=== PATIENT | male | born 1975 | race Two or more races ===

== ENCOUNTER 2023-11-24 14:07 | Emergency (ER) | payer OTHER, SELFPAY ==
--- NOTE | ~2023-11-24 | XR_ITS ---
EXAMINATION: XR LUMBOSACRAL SPINE CLINICAL INFORMATION: Injury. Low back pain. COMPARISON: None available. TECHNIQUE: Three views of the lumbosacral spine. FINDINGS: Vertebrae have normal height and alignment. No fracture or bone destruction. Lumbar disc heights are normal. There are small vertebral endplate spurs involving anterior superior endplate of L5 T12. Facet joints are normal. No spondylolysis or spondylolisthesis. Sacroiliac joints are normal. XR/XR lumbar spine 2-3V IMPRESSION: 1. No acute abnormality. 2. Small vertebral endplate spurs of the L5 vertebrae. Lumbar disc heights and facet joints are normal.
--- NOTE | 2023-11-24 14:12 | ED.GENADULT ---
HPI - General Adult General Chief complaint: Back Pain/Injury Stated complaint: Back pain Time Seen by Provider: 11/24/23 14:25 Source: patient Mode of arrival: ambulatory Limitations: no limitations History of Present Illness HPI narrative: Patient is a 48-year-old male with history of DM presenting to the emergency department with complaint of mid to right lower back pain since a slip and fall on Tuesday. He states that he was going down the stairs when he missed a step. He reports that he was holding his son so he braced himself and landed on his back. He denies head strike or loss of consciousness. He has not anticoagulated. He called PCP who referred him to the emergency department to ensure there was no renal injury. Patient denies any hematuria. Reports glucose levels have been elevated since Mother's Day, wants to make sure he is not in DKA. Denies saddle anesthesia or bowel or bladder incontinence. Denies fevers. MD complaint: back pain Onset (ago): day(s) Location: back Severity: severe Quality: aching Pain Consistency: constant Relieving factors: rest Exacerbating factors: movement Associated symptoms: denies other symptoms Treatments prior to arrival: none Related Data Previous Rx's ?Medication ?Instructions ?Recorded cyclobenzaprine 10 mg tablet 10 mg PO TID PRN muscle spasm #10 11/24/23 tabs lidocaine 5 % topical patch 1 patch topical DAILY #15 ea 11/24/23 Allergies Allergy/AdvReac Type Severity Reaction Status Date / Time No Known Allergies Allergy Verified 11/24/23 14:16 Review of Systems Review of Systems: As per HPI. Yes all other systems are reviewed and are negative Constitutional: Constitutional: Reports as per HPI [facility] Social History Social History Advance Directives: No Advance Directives Information Provided: No Physical Exam ED Vital Signs: Vital Signs - 24 hr 11/24/23 14:13 Temperature 98.9 F Pulse Rate 95 Respiratory Rate 16 Blood Pressure 134/74 Pulse Oximetry 98 Oxygen Delivery Method Room Air BMI result Body Mass Index 38.7 Vital signs have been reviewed and appear to be correct. Blood pressure normal. Heart rate normal. Respiratory rate normal. Temperature normal. Oxygen saturation normal. Const General: cooperative, healthy appearing and no acute distress Orientation/consciousness: oriented to person, oriented to place, oriented to time and patient oriented x3 Limitations: no limitations HENMT Head: Yes normocephalic and Yes atraumatic Ears: external ears normal General nose exam: Normal external nose present Face and sinus: Yes face symmetric Mouth: oropharynx normal and moist mucous membranes Throat: Yes uvula midline Eyes Pupils: Equal, round and reactive pupils present Neck Neck: Yes normal visual inspection, Yes no meningeal signs and Yes supple Resp Effort & Inspection: normal respiratory effort and able to speak in complete sentences Auscultation: clear to auscultation bilaterally Cardio Rate: regular rate Rhythm: regular rhythm Heart sounds: S1 normal heart sound present and S2 normal heart sound present GI Palpation (GI): Soft to palpation and nontender Auscultation: normoactive bowel sounds General: Yes no CVA tenderness Back/Spine/Pelvis Back: no CVA tenderness Cervical Spine: normal cervical lordosis, cervical ROM normal, No Cervical spine tenderness and No step off deformity Thoracic/Lumbar Spine: thoracic and lumbar spine normal to inspection, thoraco-lumbar ROM normal, straight leg raise negative bilaterally, pain with thoraco-lumbar ROM, paraspinal muscle tenderness on the right in the upper lumbar, No thoracic spinal tenderness and lumbar spinal tenderness at L1 and at L2 Skin General skin exam: elasticity normal and turgor normal Neuro General: oriented to person, oriented to place, oriented to time, patient oriented x3, gait normal, tone normal, moves all extremities, Normal light touch and pain sensation, no meningeal signs, no focal motor deficits, CN's II-XI intact bilaterally and deep tendon reflexes 2+ bilaterally Cranial nerves: Yes Equal, round and reactive pupils present Cognition (Neuro): normal cognition Motor exam (neuro): 5/5 motor strength present throughout, Pronator motor function not present, no tremor noted, no asterixis, Motor fasciculations not present, Normal motor muscle tone present throughout and Motor abnormalities not present Sensory Exam: Normal double simultaneous stimulation for sensation Extrem General: Yes full ROM, Yes no pedal edema and Yes no calf tenderness Psych Mental Status: mental status grossly normal Affect: normal affect Thought process: Normal thought process present Course Course Course Narrative: RME performed by Nicole Grant PA-C. Patient is a 48 year old assigned male at presenting to the emergency department with back pain. Patient states that last week he fell while holding his son but his PCP is concerned his kidneys are having issues. Patient has a history of DM. Labs, imaging, and swabs ordered. Patient placed back in the waiting room pending room availability and results. Medical Decision Making Medical Decision Making [facility] Narrative: Patient is a 48-year-old male with history of DM presenting to the emergency department with complaint of mid to right lower back pain since a slip and fall on Tuesday. On exam patient is awake, A+Ox3, VS WNL, afebrile, normal neurological exam without focal deficits, physical exam findings as above. Given reported symptoms and physical exam findings, initial differential includes vertebral fracture or subluxation, lumbar strain, lumbar radiculopathy, degenerative disc disease, disc herniation, spinal stenosis, spondylosis. Do not suspect malignancy/mass, SEA, cauda equina/cord compression. Labs notable for no evidence of DKA. X-ray notable for no acute abnormalities. My interpretation is in agreement with the radiologist's interpretation. No evidence of infection on urinalysis. Will treat patient for lumbar strain with cyclobenzaprine and topical lidocaine patches, advised him to alternate Tylenol and ibuprofen. Instructed patient follow-up with primary care provider. Return precautions discussed at bedside. Patient verbalized understanding of and agreement plan. Differential Diagnosis Differential Diagnoses: The differential diagnosis associated with the presentation includes As per [facility]. Admission/Observation Consideration of admission/observation: Escalation of care including admission/observation considered Patient would have been admitted to the hospital had their work up had any findings where hospital admission was appropriate and their clinical presentation warranted hospital admission. Lab Data [facility] Lab Attestation statement: I reviewed the patient's lab results. As per [facility]. 11/24/23 14:25 11/24/23 14:24 Labs: Lab Results 11/24/23 11/24/23 11/24/23 Range/Units 14:20 14:24 14:25 WBC 11.8 H (4.8-10.8) X10*3/uL RBC 6.17 H (4.60-5.80) X10*6/uL Hgb 14.9 (14.0-18.0) g/dl Hct 45.0 (42.0-52.0) % MCV 72.9 L (80.0-98.0) fL MCH 24.1 L (27.0-33.0) pg MCHC 33.1 (31.0-36.0) g/dl RDW 14.6 (11.0-16.0) % Plt Count 289 (160-400) X10*3/uL MPV 11.4 (9.4-12.4) fL Immature Gran % (Auto) 0.3 (0.0-0.4) % Neut % (Auto) 68.8 (45-73) % Lymph % (Auto) 22.9 (20-40) % Davison % (Auto) 6.2 (2-11) % Eos % (Auto) 1.7 (0-4) % Baso % (Auto) 0.1 (0-2) % Lymph # (Auto) 2.7 (1.2-4.9) X10*3/uL Davison # (Auto) 0.7 (0.1-1.2) X10*3/uL Eos # (Auto) 0.2 (0.0-0.4) X10*3/uL Baso # (Auto) 0.0 (0.0-0.2) X10*3/uL Abs Immat Gran (auto) 0.04 H (0.00-0.03) X10*3/uL Absolute Neuts (auto) 8.1 (2.0-8.3) x10*3/uL Absolute Nucleated RBC 0.000 (0.0-0.012) X10*3/uL Nucleated RBC % (auto) 0.0 (0.0-0.2) /100WBC Sodium 135 (135-145) mmol/L Potassium 4.3 (3.3-5.1) mmol/L Chloride 100 (96-108) mmol/L Carbon Dioxide 23 (22-29) mmol/L Anion Gap 16 (12-20) BUN 15 (9-16) mg/dL Creatinine 1.54 H (0.5-1.4) mg/dL Estim Creat Clear Calc 79.2 Estimated GFR 48 POC Glucose 305 H (60-115) mg/dL Random Glucose 347 H (60-115) mg/dL Calcium 9.5 (8.4-10.2) mg/dL Magnesium 1.9 (1.6-2.6) mg/dL Total Bilirubin 0.8 (0.0-1.0) mg/dL AST 14 (5-37) U/L ALT 27 (0-40) U/L Alkaline Phosphatase 93 (39-117) U/L Total Protein 7.8 (6.5-8.0) g/dL Albumin 4.3 (3.5-5.0) g/dL Beta-Hydroxybutyrate 0.21 (0.02-0.27) mmol/L Urine Color Urine Appearance Urine pH (5.0-9.0) Ur Specific Nogal (1.005-1.025) Urine Protein (Neg-Trace) mg/dL Urine Glucose (UA) (Negative) mg/dL Urine Ketones (Negative) mg/dL Urine Blood (Negative) Urine Nitrite (Negative) Ur Leukocyte Esterase (Negative) Urine RBC (0-2) /HPF Urine WBC (0-5) /HPF Ur Squamous Epith Cells (0-2) /HPF Urine Bacteria (None Seen) Hyaline Casts (0-2) /LPF 11/24/23 Range/Units 15:55 WBC (4.8-10.8) X10*3/uL RBC (4.60-5.80) X10*6/uL Hgb (14.0-18.0) g/dl Hct (42.0-52.0) % MCV (80.0-98.0) fL MCH (27.0-33.0) pg MCHC (31.0-36.0) g/dl RDW (11.0-16.0) % Plt Count (160-400) X10*3/uL MPV (9.4-12.4) fL Immature Gran % (Auto) (0.0-0.4) % Neut % (Auto) (45-73) % Lymph % (Auto) (20-40) % Davison % (Auto) (2-11) % Eos % (Auto) (0-4) % Baso % (Auto) (0-2) % Lymph # (Auto) (1.2-4.9) X10*3/uL Davison # (Auto) (0.1-1.2) X10*3/uL Eos # (Auto) (0.0-0.4) X10*3/uL Baso # (Auto) (0.0-0.2) X10*3/uL Abs Immat Gran (auto) (0.00-0.03) X10*3/uL Absolute Neuts (auto) (2.0-8.3) x10*3/uL Absolute Nucleated RBC (0.0-0.012) X10*3/uL Nucleated RBC % (auto) (0.0-0.2) /100WBC Sodium (135-145) mmol/L Potassium (3.3-5.1) mmol/L Chloride (96-108) mmol/L Carbon Dioxide (22-29) mmol/L Anion Gap (12-20) BUN (9-16) mg/dL Creatinine (0.5-1.4) mg/dL Estim Creat Clear Calc Estimated GFR POC Glucose (60-115) mg/dL Random Glucose (60-115) mg/dL Calcium (8.4-10.2) mg/dL Magnesium (1.6-2.6) mg/dL Total Bilirubin (0.0-1.0) mg/dL AST (5-37) U/L ALT (0-40) U/L Alkaline Phosphatase (39-117) U/L Total Protein (6.5-8.0) g/dL Albumin (3.5-5.0) g/dL Beta-Hydroxybutyrate (0.02-0.27) mmol/L Urine Color Yellow Urine Appearance Clear Urine pH 5.5 (5.0-9.0) Ur Specific Nogal >= 1.030 H (1.005-1.025) Urine Protein Negative (Neg-Trace) mg/dL Urine Glucose (UA) >=1000 H (Negative) mg/dL Urine Ketones Trace (Negative) mg/dL Urine Blood Negative (Negative) Urine Nitrite Negative (Negative) Ur Leukocyte Esterase Negative (Negative) Urine RBC 0-2 (0-2) /HPF Urine WBC 0-5 (0-5) /HPF Ur Squamous Epith Cells 0-2 (0-2) /HPF Urine Bacteria None Seen (None Seen) Hyaline Casts 0-2 (0-2) /LPF Independent Interpretation I performed an independent interpretation of an: Plain X-Ray Interpretation: No acute abnormalities on lumbar x-ray Radiology Impression Discussion of test interpretation with radiology: I have reviewed the radiologist's reading. Radiologist Impression: XR/XR lumbar spine 2-3V IMPRESSION: 1. No acute abnormality. 2. Small vertebral endplate spurs of the L5 vertebrae. Lumbar disc heights and facet joints are normal. External Record Review External record reviewed: Inpatient record, Office record and Outpatient record Prescription Management I considered prescription management with: Pain Medication and Other Discharge Plan Discharge Clinical Impression: Strain of lumbar region Patient Disposition: Home, Self-Care Instructions: Low Back Strain (ED), Lower Back Exercises (ED) Additional Instructions: You were evaluated in the emergency department today for back pain. Your evaluation did not show signs of medical conditions requiring emergent intervention at this time. We recommended that you use ibuprofen or Tylenol per package directions every 6 hours as needed for pain. If necessary, you can alternate these medications so that you take one medication every 3 hours. For instance, at noon take ibuprofen, then at 3:00 p.m. take Tylenol, then at 6:00 p.m. take ibuprofen. You have been prescribed a muscle relaxer which you may take every 8 hours as needed for spasms. You have been prescribed 5% topical lidocaine patches which you can wear for up to 12 hours in a 24 hour period. Do not apply heat directly over the patches. Please schedule an appointment for follow-up with your primary care physician this week for further evaluation of your symptoms. Return to the emergency department if you experience worsening back pain, difficulty walking, fevers, numbness, tingling, incontinence, groin numbness or tingling, or any other concerning symptoms. Prescriptions: New cyclobenzaprine 10 mg tablet 10 mg PO TID PRN (Reason: muscle spasm) Qty: 10 0RF lidocaine 5 % adhesive patch,medicated 1 patch topical DAILY Qty: 15 0RF Rx Instructions: leave on most painful area for up to 12 hrs Stand Alone Forms: Work/School Release Print Language: Yi
[2023-11-24 14:13] VITALS: BP 134/74; PULSE 95; RESP 16; TEMP 37.2; O2SAT 98; BMI 38.7
[2023-11-24 14:24] LABS: Glucose, Whole Blood 305 mg/dL (60-115)
[2023-11-24 14:30] LABS: MANUAL DIFF FLAG NO
[2023-11-24 14:31] LABS: Basophils Percent Auto 0.1 % (0-2); Eosinophils Absolute Auto 0.2 X10*3/uL (0.0-0.4); Eosinophils Percent Auto 1.7 % (0-4); Hemoglobin 14.9 g/dl (14.0-18.0); Imm Gran Abs Auto 0.04 X10*3/uL (0.00-0.03); Imm Gran Pct Auto 0.3 % (0.0-0.4); Lymphocytes Absolute Auto 2.7 X10*3/uL (1.2-4.9); Lymphocytes Percent Auto 22.9 % (20-40); Mean Corpuscular HGB Conc 33.1 g/dl (31.0-36.0); Mean Corpuscular Hemoglobin 24.1 pg (27.0-33.0); Mean Corpuscular Volume 72.9 fL (80.0-98.0); Mean Platelet Volume 11.4 fL (9.4-12.4); Monocytes Absolute Auto 0.7 X10*3/uL (0.1-1.2); Monocytes Percent Auto 6.2 % (2-11); Neutrophils Absolute Auto 8.1 x10*3/uL (2.0-8.3); Neutrophils Percent Auto 68.8 % (45-73); Platelet Count 289 X10*3/uL (160-400); Red Blood Count 6.17 X10*6/uL (4.60-5.80); Red Cell Distribution Width 14.6 % (11.0-16.0); White Blood Count 11.8 X10*3/uL (4.8-10.8)
[2023-11-24 14:51] LABS: Alanine Aminotransferase 27 U/L (0-40); Albumin Level 4.3 g/dL (3.5-5.0); Alkaline Phosphatase 93 U/L (39-117); Anion Gap 16 (12-20); Aspartate Amino Transferase 14 U/L (5-37); Beta-Hydroxybutyrate 0.21 mmol/L (0.02-0.27); Bilirubin Total 0.8 mg/dL (0.0-1.0); Blood Urea Nitrogen 15 mg/dL (9-16); Calcium 9.5 mg/dL (8.4-10.2); Carbon Dioxide 23 mmol/L (22-29); Chloride 100 mmol/L (96-108); Creatinine Clr Calc Pharmacy 79.2; Estimated Glomerular Filt Rate 48; Glucose Random 347 mg/dL (60-115); Magnesium 1.9 mg/dL (1.6-2.6); Potassium 4.3 mmol/L (3.3-5.1); Sodium 135 mmol/L (135-145); Total Protein 7.8 g/dL (6.5-8.0)
[2023-11-24 16:04] LABS: Appearance Urine Clear; Color Urine Yellow; Glucose Urine UA >=1000 mg/dL (Negative); Leukocyte Esterase Urine Negative (Negative); Nitrite Urine Negative (Negative); PH 5.5 (5.0-9.0); Specific Gravity - Urine >= 1.030 (1.005-1.025); UMIC TRIGGER UACC YES; Urine Blood Negative (Negative); Urine Ketones Trace mg/dL (Negative); Urine Protein Negative (Neg-Trace)
[2023-11-24 16:09] LABS: Bacteria Urine None Seen (None Seen); Hyaline Casts Urine 0-2 /LPF (0-2); RBC Urine 0-2 /HPF (0-2); Squamous Epithelial Cell Urine 0-2 /HPF (0-2); WBC Urine 0-5 /HPF (0-5)
[2023-11-24 16:39] VITALS: BP 128/82; PULSE 101; RESP 18; TEMP 36.8; O2SAT 100
== END 2023-11-24 16:40 | disposition home or self-care (01) ==
PROVIDERS: Physician Assistant Medical; Emergency Provider Emergency Medicine; PCP Internal Medicine
DX: S39.012A Strain of muscle, fascia and tendon of lower back, initial encounter (principal); E11.9 Type 2 diabetes mellitus without complications; W10.9XXA Fall (on) (from) unspecified stairs and steps, initial encounter; Y93.9 Activity, unspecified; Y92.9 Unspecified place or not applicable; Y99.9 Unspecified external cause status
CPT/HCPCS: 36415; 72100; 80053; 81001; 81003; 82010; 82947; 83735; 85025; 99282; 99283

== ENCOUNTER 2024-10-27 10:25 | Emergency (ER) | payer OTHER, SELFPAY ==
--- NOTE | ~2024-10-27 | XR_ITS ---
CLINICAL HISTORY: back pain 3 views lumbar spine Comparison: None Findings: Normal alignment. No acute fractures or dislocation. No significant degenerative change. IMPRESSION: No acute findings. This document has been electronically signed by: Mina Contreras MD on 10/27/2024 13:27:18
[2024-10-27 10:31] VITALS: BP 124/85; PULSE 69; RESP 18; TEMP 36.3; O2SAT 96; BMI 39.9
--- NOTE | 2024-10-27 11:15 | ED_ITS ---
HPI - Back Pain/Injury General Chief Complaint: Extremity Injury, Lower Stated Complaint: Leg pain Time Seen by Provider: 10/27/24 10:59 Source: patient Mode of arrival: ambulatory Limitations: no limitations History of Present Illness HPI Narrative: This is a 49 years old male who drove himself to the emergency department walk to the department complaining of lower back pain and again in 2 the right leg. He was seen by his PCP on Tuesday for the same problem and was started on Motrin and with no improvement. He has no deficit in strength he has no fever he has no saddle anesthesia. MD elicited complaint: back pain Pertinent past history: prior back pain Onset (ago): day(s) (3) Timing: constant Severity: moderate Similar Symptoms Previously: Yes Quality: sharp Location: lumbar spine Radiation: other (Right leg) Exacerbating factors: none Relieving factors: none Associated symptoms: denies other symptoms Related Data Previous Rx's ?Medication ?Instructions ?Recorded cyclobenzaprine 10 mg tablet 10 mg PO TID PRN muscle spasm #10 11/24/23 tabs lidocaine 5 % topical patch 1 patch topical DAILY #15 ea 11/24/23 oxycodone 5 mg tablet 5 mg PO Q6H PRN pain #15 tabs 10/27/24 prednisone 20 mg tablet 40 mg (2 x 20 mg) PO DAILY 10/27/24 sciatica 5 days #10 tabs Allergies Allergy/AdvReac Type Severity Reaction Status Date / Time No Known Allergies Allergy Verified 10/27/24 10:32 Review of Systems Cardiovascular: Cardiovascular: Reports no additional cardiovascular complaints Musculoskeletal: Musculoskeletal: Reports back pain [facility] Past Medical History [facility] Narrative: Lower back pain for (seen here November 2023 for back pain) Social History Social History Smoked in Last 30 Days: No Use of substances other than those prescribed or required for medical reasons: No Advance Directives: No Advance Directives Information Provided: Yes Physical Exam Vital Signs: Vital Signs: Last Vital Signs Temp 98.0 F 10/27/24 12:26 Pulse 62 10/27/24 12:26 Resp 18 10/27/24 12:26 BP 130/68 10/27/24 12:26 Pulse Ox 100 10/27/24 12:26 O2 Del Method Room Air 10/27/24 12:26 BMI result Body Mass Index 39.9 Looks well he has no in distress his vital signs are stable he is afebrile Const: General: cooperative Orientation/consciousness: patient oriented x3 HEENT: Head: Yes normal to inspection Ears: hearing grossly normal bilaterally General nose exam: Normal external nose present Face and sinus: Yes normal facial exam Teeth and gingiva: dentition normal Throat: Yes posterior oropharynx normal Neck: Neck: Yes normal visual inspection Chest: Chest palpation & inspection: normal inspection of the chest Resp: Effort & Inspection: normal respiratory effort Cardio: Jugular venous distension: no JVD Rhythm: regular rhythm GI: Inspection: Yes normal to inspection Palpation (GI): Soft to palpation, not firm, nontender and no guarding Percussion: Yes normal to percussion Skin: General skin exam: no rashes or lesions noted Lesions: no lesions Rashes: no rashes Neuro: Other: On examination he has no deficits on strength he sensation is normal he is able to feel my hand normally is reflexes are present. The is gait is antalgic but is able to ambulate without any problem. General: patient oriented x3 Cognition (Neuro): normal cognition Motor exam (neuro): 5/5 motor strength present throughout Course Reevaluation(s) Reevaluation #1: On re-examination she is feeling better, he is neurologically intact, able to ambulate I think he can be discharged home follow-up with the his primary care physician and Spine service Time: 12:17 Medications Administered Discontinued Medications Generic Name Dose Route Start Last Admin Trade Name Freq PRN Reason Stop Dose Admin Ketorolac Tromethamine 60 mg 10/27/24 11:15 10/27/24 11:28 Ketorolac Tromethamine 60 Mg/2 Ml Vial IM 10/27/24 11:16 60 mg ONCE ONE Administration Prednisone 60 mg 10/27/24 11:14 10/27/24 11:28 Prednisone 20 Mg Tablet PO 10/27/24 11:15 60 mg ONCE ONE Administration Medical Decision Making Medical Decision Making [facility] Narrative: Patient is here with lower back pain radiating to the right leg clinical picture consistent with right sciatic. We will provide analgesia I do not think we need to do an emergent MRI today no red flags. He can be discharged home he can follow-up with Dr Grant Differential Diagnosis Differential Diagnoses: The differential diagnosis associated with the presentation includes Muscular strain/sciatic pain Admission/Observation Consideration of admission/observation: Escalation of care including admission /observation considered Independent Interpretation I performed an independent interpretation of an: Plain X-Ray Interpretation: no fx Radiology Impression Discussion of test interpretation with radiology: I have reviewed the radiologist's reading. Radiologist Impression: CLINICAL HISTORY: back pain 3 views lumbar spine Comparison: None Findings: Normal alignment. No acute fractures or dislocation. No significant degenerative change. IMPRESSION: No acute findings. This document has been electronically signed by: Mina Contreras MD on 10/27/2024 13:27:18 Dictated By: Mina Contreras MD Signed By: <Electronically signed by Mina Contreras MD in OV> 10/27/24 1328 DD/ 1327 TD/TT: 10/27/24 1327 Transcri Tests considered The following testing was considered but not selected: Emergent MRI spine not done because neurologically intact Prescription Management I considered prescription management with: Pain Medication Discharge Plan Discharge Clinical Impression: Sciatica Qualifiers: Laterality: right Qualified Code(s): M54.31 - Sciatica, right side Patient Disposition: Home, Self-Care Instructions: Sciatica (ED) Additional Instructions: follow up with Dr Grant (payer specialist) return if worse,weakness legs,numbness in the groin/genitalia,any concern Prescriptions: New prednisone 20 mg tablet 40 mg PO DAILY 5 Days Qty: 10 0RF oxycodone 5 mg tablet 5 mg PO Q6H PRN (Reason: pain) Qty: 15 0RF Rx Instructions: partial filing upon pt request; Partial Fill upon patient request. No Action cyclobenzaprine 10 mg tablet 10 mg PO TID PRN (Reason: muscle spasm) Qty: 10 0RF lidocaine 5 % adhesive patch,medicated 1 patch topical DAILY Qty: 15 0RF Rx Instructions: leave on most painful area for up to 12 hrs Referrals: Edwin Nayak MD, PhD [Physician] - 10/30/24 Stand Alone Forms: Work/School Release Interventions: ED Discharge Assessment Last Done: 10/27/24 12:26 Discharge Date/Time: 10/27/24 12:27 Print Language: Greek
--- OUTSIDE RECORDS SUMMARY | 2024-10-27 11:16 | XMS_ITS | Encounter Summary ---
Author Organization [facility] Address [address] [place] [address] Care Team Providers Care Tile Molder Hand Name Role Phone Brando Gibbs MD Primary Care Provider [phone] Reason for Visit * Reason Onset Date Comments Back Pain 10/25/2024 Numbness 10/25/2024 Encounter Details Date Type Department Care Team (Late st Contact Info) Description 10/25/2024 Telephone Adult Medicine [address] [phone] Brando Gibbs MD [address] [place] [phone] Back Pain; Numbness Social History Tobacco Use Types Packs/Day Years Used Date Smoking Tobacco: Never Smokeless Tobacco: Never Alcohol Use Standard Drinks/Week Comments Yes 0 (1 standard drink = 0.6 oz pur e alcohol) Sex and Gender Information Value Date Recorded Sex Assigned at Not on file Legal Sex Male 11:39 PM EST Gender Identity Not on file Sexual Orientation Not on file documented as of this encounter Progress Notes * Celine Keyes RN - 10/26/2024 8:40 AM EDT I left a message for the pt to call the office at . * Brando Gibbs MD - 10/25/2024 5:42 PM EDT Please inform the patient I have place the order and he may present to xray at his convenience * Celine Keyes RN - 10/25/2024 11:35 AM EDT Pt had an appointment in the office on 10/23/24; Pt notes acute back injury today while putting sonin the car. Pt denies any sounds no popping. Pt notes low in nature Pt notes pain is sharp and constant Pain with pain with back rotation Pt notes when sitting having paresthesia right leg Pt with acute back injury exam c/w sprain and spasm will rx flexeril 10 mg po tid prn D/w pt this med can cause lethargy pt told to avoid driving, etoh, or operating heavy machinery will rx motrin 800 mg po tid. Advised rest and heat will have pt out of work for the next 48 hours Called and spoke to pt. He states he took the Flexeril once last night before bed and woke up more groggy in the morning. He has taken the Motrin 800 mg once last night as well. He was instructed to take the Motrin every 8 hours as prescribed. He was informed Motrin is a NSAIDand works by alleviating inflammation. His inflammation is causing pressure on his nerves leading to his burning pain. Taking the Motrin every 8 hours will alleviate this inflammation improving his current symptoms. He denies saddle anesthesia or new onset of incontinence of his bladder or bowels. He rates his pain as 8/10 and describes the pain as burning. He is asking to have an x-ray. * Christina Galeano - 10/25/2024 10:59 AM EDT Patient call requires triage: Symptoms patient is presenting: back pain with numbness and spasms How long has patient had these symptoms?: 2 days For ALL patients calling to schedule any appointment (routine, sick visit, follow up, consult, etc.) in the outpatient setting please ask the following questions: Do you have fever of higher than 101, sore throat with difficulty swallowing or severe shortness ofbreath? no If YES to any of these above symptoms, send a message to triage and do not book. Red dot. If no, an audio or video visit should be booked. Have you had close contact with someone with Coronavirus in the last 14 days? no Have you traveled abroad? no Have you traveled recently to another state outside of [place], [place], [place], [place], [place], [place], [place]? no o If yes, did you quarantine for 14 days or have a negative covid test? no If yes to any of the above, patient is not to be scheduled in office until after 14 day quarantine or negative covid test. If pain or injury related was it due to an accident at work or from a motor vehicle accident? If yes, date of accident/Injury: No If yes, gather 3rd constitution party insurance information Third Democrat Information: not applicable PCP: Brando Gibbs MD Payor: [employer] / Plan: [employer] / Product Type: *No Product type* / documented in this encounter Plan of Treatment Upcoming Encounters Date Type Department Care Team (Late st Contact Info) Description 11/12/2024 8:15 AM EDT Office Visit Orthopedic Surgery - [place] [address] [phone] Karthik Gill DPM [address] [address] 11/20/2024 9:15 AM EDT Ancillary Procedure [facility] [address] [facility] [address] [place] [phone] 04/12/2025 7:30 AM EDT Hospital Encounter [facility] [place] [address] [place] [phone] Karthik Gill DPM [address] [address] 04/12/2025 7:30 AM EDT - 04/12/2025 9:30 AM EDT Surgery [facility] [place] [address] [place] [phone] Karthik Gill, JAY [address] [address] EXCISION MASS LEFT EXTREMITY LOWER [77304 (CPT??)] 05/10/2025 8:30 AM EDT Office Visit Adult Medicine [facility] [address] [place] [phone] Brando Gibbs MD [address] [place] [phone] Scheduled Procedures Name Priority Associated Diagnoses Date/Ti me EXCISION MASS EXTREMITY LOWER Left foot pain Fibroma of left foot Plantar fasciitis 04/12/2025 7:30 AM EDT FASCIOTOMY PLANTAR Left foot pain Fibroma of left foot Plantar fasciitis 04/12/2025 7:30 AM EDT documented as of this encounter Visit Diagnoses Diagnosis Left foot pain Pain in soft tissues of limb Fibroma of left foot Plantar fasciitis Plantar fascial fibromatosis Acute low back pain without sciatica, unspecified back pain laterality- Primary Left foot pain Pain in soft tissues of limb Fibroma of left foot Plantar fasciitis Plantar fascial fibromatosis documented in this encounter Care Teams Tile Molder Hand Relationship Specialty Start Date End Date Brando Gibbs MD [address] [place] [phone] PCP - General Internal Medicine 04/29/21 documented as of this encounter
--- OUTSIDE RECORDS SUMMARY | 2024-10-27 11:16 | XMS_ITS | Clinical Summary ---
Author Organization 175 [facility] Address [address] [place] [address] Phone Care Team Providers Care Naval Marine Engineer Name Role Phone Brando Gibbs MD Primary Care Provider [phone] Allergies Active Allergy Reactions Criticality Noted Date Comments Ibuprofen 01/25/2017 Other Reaction(s): unk Face swelling Medications diclofenac (VOLTAREN) 1 % topical gel Apply 4 g topically 4 times daily. 4 Active pen needle, diabetic 32 gauge x 5/32 needle Use one daily with insulin. 4 Active blood-glucose meter kit 1 Device by Does not apply route daily. 4 Active blood sugar diagnostic (FreeStyle Lite Strips) test strip Use to check BS 3 times a day 4 Active FREESTYLE LANCETS MISC Use to check BS 3 times a day 4 Active blood-glucose sensor (FreeStyle Gregorio 3 Plus Sensor) deviceIndicatio ns:Type 2 diabetes mellitus without complication, with long-term current use of insulin ([facility] V24, [facility] V28) Change sensor every 15 days 2 each 11 4 Active semaglutide (Ozempic) 1 mg/dose (2 mg/1.5 mL) injection pen Inject 1 mg under the skin every 7 (seven) days. 3 mL 5 4 Active atorvastatin (LIPITOR) 20 mg tablet TAKE 1 TABLET BY MOUTH EVERYDAY AT BEDTIME 90 tablet 1 5 Active lisinopriL (PRINIVIL,ZESTR IL) 10 mg tablet TAKE 1 TABLET BY MOUTH EVERY DAY 90 tablet 1 5 Active insulin glargine (Lantus Solostar U-100 Insulin) 100 unit/mL (3 mL) injection pen Inject 20 Units under the skin at bedtime. 15 mL 5 5 Active cyclobenzaprine (FLEXERIL) 10 mg tablet Take 1 tablet (10 mg total) by mouth 3 (three) times a day if needed for muscle spasms. 21 tablet 2 5 Active ibuprofen (ADVIL,MOTRIN) 800 mg tablet Take 1 tablet (800 mg total) by mouth 3 (three) times a day if needed for mild pain (pain). 90 tablet 5 5 10/24/19 26 Active insulin glargine (Lantus Solostar U-100 Insulin) 100 unit/mL (3 mL) injection pen Inject 20 Units into the skin at bedtime. Go up by 5 units every week if BS above 130. Max daily dose 60 units 4 10/24/19 25 Discontinu ed(Reorder ) cyclobenzaprine (FLEXERIL) 10 mg tablet Take 1 tablet (10 mg total) by mouth 3 (three) times a day if needed for muscle spasms. 4 10/24/19 25 Discontinu ed(Reorder ) Active Problems Problem Noted Date Diagnosed Date Left foot pain 06/26/2024 Fibroma of left foot 06/26/2024 Plantar fasciitis 06/26/2024 Seasonal allergies 05/23/2024 Primary hypertension 04/20/2024 Hyperlipidemia 06/09/2023 Diabetes mellitus type 2, un complicated ([facility] V24, [facility] V28) 11/22/2019 Morbid obesity with body mas s index (BMI) of 40.0 or higher ([facility] V24, [facility] V28) 11/22/2019 Cervical radiculopathy 03/14/2019 Cervical spondylosis with radiculopathy 03/14/20 19 Acanthosis nigricans 11/16/2018 Gastroesophageal reflux disease 11/16/2018 Encounters Date Type Department Care Team Description 10/26/2024 11:36 AM EDT - 10/26/2024 11:59 PM EDT Hospital Encounter [facility] [address] [place], [place] [phone] Acute low back pain without sciatica, unspecified back pain laterality Discharge Disposition: Home or Self Care 10/25/2024 Telephone Adult [address] [phone] Brando Gibbs MD Back Pain; Numbness 10/23/2024 9:45 AM EDT Office Visit Adult [address] [phone] Brando Gibbs MD Type 2 diabetes mellitus without complication, with long-term current use of insulin ([facility] V24, [facility] V28) (Primary Dx); Pure hypercholesterolemia ; Primary hypertension; Encounter for long-term (current) use of medications; Chest pain, unspecified type; Back strain, initial encounter; Back spasm from Last 3 Months Immunizations Name Administration Dates Next Due Moderna SARS-CoV-2 COVID-19, mRNA, LNP-S, preservative free 09/19/2020,08/20/2020 Td Tetanus diptheria (Tdvax) 7yo and older 11/16 Surgical History Surgery Date Site/Laterality Comments APPENDECTOMY 1991 PROCEDURE: HISTORICAL APPENDECTOMY HERNIA REPAIR 1995 PROCEDURE: HISTORICAL HERNIA REPAIR/ING Medical History Medical History Date Comments Seasonal allergies DX:Seasonal a llergies Diabetes mellitus type 2, uncomplicated ([facility] V24, [facility] V28) 11/22/2019 DX:Diabetes mellitus type 2, uncomplicated ([facility]) Family History Medical History Relation Name Comments No Known Problems Brother 1 No Known Problems Brother 2 No Known Problems Brother 3 No Known Problems Brother 4 No Known Problems Brother 5 Asthma Brother 6 Other: heart disease Brother 7 Alcohol abuse Brother 8 Other: heart disease Brother 8 Asthma Father Heart attack Father Hypertension Father Diabetes Mother Heart attack Mother Hypertension Mother Stroke Mother Diabetes Sister 1 No Known Problems Sister 2 Relation Name Status Comments Brother 1 Alive Brother 2 Alive Brother 3 Alive Brother 4 Alive Brother 5 Alive Brother 6 Alive Brother 7 Alive Brother 8 Alive Father Mother Sister 1 Alive Sister 2 Alive Social History Tobacco Use Types Packs/Day Years Used Date Smoking Tobacco: Never Smokeless Tobacco: Never Tobacco Cessation:Counseling Given: Not Answered Alcohol Use Standard Drinks/Week Comments Yes 0 (1 standard drink = 0.6 oz pur e alcohol) Sex and Gender Information Value Date Recorded Sex Assigned at Not on file Legal Sex Male 11:39 PM EST Gender Identity Not on file Sexual Orientation Not on file Obstetrics History Last Filed Vital Signs Vital Sign Reading Time Taken Comments Blood Pressure 114/78 10/23/2024 9:40 AM EDT Pulse 82 10/23/2024 9:40 AM EDT Temperature 36.4 ??C (97.6 ??F) 10/23/2024 9:40 AM ED T Respiratory Rate - - Oxygen Saturation 97% 06/21/2024 9:11 AM EST Inhaled Oxygen Concentration - - Weight 129 kg (285 lb) 10/23/2024 9:40 AM EDT Height 180.3 cm (5' 10.98 ) 10/23/2024 9:40 AM E DT Body Mass Index 39.77 10/23/2024 9:40 AM EDT Plan of Treatment Upcoming Encounters Date Type Department Care Team (Late st Contact Info) Description 11/12/2024 8:15 AM EDT Office Visit Orthopedic Surgery - [place] [address] [phone] Karthik Gill DPM [address] [address] 11/20/2024 9:15 AM EDT Ancillary Procedure [facility] [address] [phone] 04/12/2025 7:30 AM EDT Hospital Encounter [facility] [place] [address] [place] [phone] Karthik Gill DPM [address] [address] 04/12/2025 7:30 AM EDT - 04/12/2025 9:30 AM EDT Surgery [facility] [place] [address] [place] [phone] Karthik Gill DPM [address] [address] EXCISION MASS LEFT EXTREMITY LOWER [22534 (CPT??)] 05/10/2025 8:30 AM EDT Office Visit Adult Medicine [facility] [address] [place] [phone] Brando Gibbs MD [address] [place] [phone] Scheduled Procedures Name Priority Associated Diagnoses Date/Ti me EXCISION MASS EXTREMITY LOWER Left foot pain Fibroma of left foot Plantar fasciitis 04/12/2025 7:30 AM EDT FASCIOTOMY PLANTAR Left foot pain Fibroma of left foot Plantar fasciitis 04/12/2025 7:30 AM EDT Health Maintenance Due Date Last Done Comments Diabetes: Annual Retina Eye Exam 1985 Hepatitis B Vaccines (1 of 3 - 19+ 3-dose series) 1994 Pneumococcal Vaccine: Pediatrics (0 to 5 Years) and At-Risk Patients (6 to 64 Years) (1 of 2 - PCV) 1994 Colorectal Cancer Screening: Colonoscopy 06/19/2022 Depression Screening 06/19/2022 HIV Screening 06/19/2022 Hepatitis C Screening 06/19/2022 Social Influencers of Health Screening 06/19/2022 COVID-19 Vaccine (3 - 2023-2 5 season) 2024 09/19/2020, 08/20/2020 Diabetes: Annual Foot Exam 07/12/2024 07/12/2023 Influenza Vaccine (Season Ended) 2025 06/27/2019 Diabetes: Blood Sugar Contro l Test (HGBA1C) 04/25/2025 10/24/2024, 07/02/2024, 10/17/2023 Diabetes: Annual Urine Albumin-Creatinine Ratio (uACR) 10/24/2025 10/24/2024, 07/02/2024, 10/17/2023 Diabetes: Annual GFR (Glomerular Filtration Rate) 10/24/2025 10/24/2024, 07/02/2024, 10/17/2023 Hypertension/CHF/CAD Annual BMP Blood Test 10/24/2025 10/24/2024, 07/02/2024, 10/17/2023 DTaP,Tdap,and Td Vaccines (3 - Td or Tdap) 06/27/2029 06/27/2019, 11/16/2018 Cholesterol Screening (Lipid Panel) 10/24/2029 10/24/2024, 07/02/2024, 10/17/2023 HIB Vaccines Aged Out No longer eligi ble based on patient's age to complete this topic HPV Vaccines Aged Out No longer eligi ble based on patient's age to complete this topic Hepatitis A Vaccines Aged Out No long er eligible based on patient's age to complete this topic IPV Vaccines Aged Out No longer eligi ble based on patient's age to complete this topic MMR Vaccines Aged Out No longer eligi ble based on patient's age to complete this topic Meningococcal ACWY Vaccine Aged Out N o longer eligible based on patient's age to complete this topic Meningococcal B Vaccine Aged Out No l onger eligible based on patient's age to complete this topic RSV Immunization Patients Under 20 months Aged Out No longer eligible b ased on patient's age to complete this topic Varicella Vaccines Aged Out No longer eligible based on patient's age to complete this topic Procedures Procedure Name Priority Date/Time Associated Diagnosis Comments XR LUMBAR SPINE 4+ VIEWS Routine 10/26/2024 11:46 AM EDT Acute low back pain without sciatica, unspecified back pain laterality HEMOGLOBIN A1C Routine 10/24/2024 9:31 AM EDT Type 2 diabetes mellitus without complication, with long-term current use of insulin ([facility] V24, [facility] V28) LIPID PANEL WITH REFLEX TO DIRECT LDL Routine 10/24/2024 9:31 AM EDT Pure hypercholesterolemia COMPREHENSIVE METABOLIC PANEL Routine 10/24/2024 9:31 AM EDT Type 2 diabetes mellitus without complication, with long-term current use of insulin ([facility] V24, [facility] V28) Primary hypertension Encounter for long-term (current) use of medications MICROALBUMIN CREATININE URINE RATIO Routine 10/24/2024 9:31 AM EDT Type 2 diabetes mellitus without complication, with long-term current use of insulin ([facility] V24, [facility] V28) DIABETES FOOT EXAM Routine 07/12/2023 from Last 3 Months or Most Recently Relevant to Health Maintenance Results * XR Lumbar Spine 4+ Views (10/26/2024 11:46 AM EDT) Anatomical Region Laterality Modality Spine, L-spine Radiographic Irene ging 10/26/2024 11:5 7 AM EDT Impressions 10/26/2024 12:00 PM EDT Mild discogenic degenerative changes as described. -------- FINAL REPORT -------- Dictated By: Vielka Anthony Dictated Date: 10/26/2024 11:57 ET Assigned Physician: Vielka Anthony Reviewed and Electronically Signed By: Vielka Anthony Signed Date: 10/26/2024 12:00 ET Workstation ID: [id number] Transcribed By: Self Edit Transcribed Date: 10/26/2024 11:57 ET Narrative 10/26/2024 12:00 PM EDT LUMBOSACRAL SPINE, ??4 VIEWS INCLUDING OBLIQUES HISTORY: ??Back pain lumbar. FINDINGS: There is slight retrolisthesis of L5 on S1. No fractures are seen. There is mild endplate spurring of the visualized lower thoracic spine. Minor spurring of inferior endplate of L3 and anterior superior endplate of L5. Procedure Note Vielka Anthony MD - 10/26/2024 LUMBOSACRAL SPINE, 4 VIEWS INCLUDING OBLIQUES HISTORY: Back pain lumbar. FINDINGS: There is slight retrolisthesis of L5 on S1. No fractures are seen. There is mild endplate spurring of the visualized lower thoracic spine.Minor spurring of inferior endplate of L3 and anterior superior endplateof L5. IMPRESSION: Mild discogenic degenerative changes as described. -------- FINAL REPORT -------- Dictated By: Vielka Anthony Dictated Date: 10/26/2024 11:57 ET Assigned Physician: Vielka Anthony Reviewed and Electronically Signed By: Vielka Anthony Signed Date: 10/26/2024 12:00 ET Workstation ID: [id number] Transcribed By: Self Edit Transcribed Date: 10/26/2024 11:57 ET us Brando Gibbs MD IMG XR PROCEDURES Final Result * Lipid panel with reflex to direct LDL (10/24/2024 9:31 AM EDT) Cholesterol 118 0 - 200 mg/dL LAB CHEMISTRY METHOD 10/24/2024 1:34 PM EDT [facility] Triglycerides 125 0 - 150 mg/dL LAB CHEMISTRY METHOD 10/24/2024 1:34 PM EDT [facility] HDL 48 >=40 mg/dL LAB CHEMISTRY METHOD 10/24/2024 1:34 PM EDT [facility] LDL Calculated 45 0 - 100 mg/dL LAB CHEMISTRY METHOD 10/24/2024 1:34 PM EDT [facility] VLDL Cholesterol Dusty 25 mg/dL LAB CHEMISTRY METHOD 10/24/2024 1:34 PM EDT [facility] Non HDL Chol. (LDL+VLDL) 70 <145 mg/dL LAB CHEMISTRY METHOD 10/24/2024 1:34 PM EDT [facility] Chol/HDL Ratio 2.5 0.0 - 4.4 LAB CHEMISTRY METHOD 10/24/2024 1:34 PM EDT [facility] Blood Venous blood specimen / Unknown Venipuncture / Unknown 10/24/2024 9:31 AM EDT 10/24/2024 9:31 AM EDT us Brando Gibbs MD LAB BLOOD ORDERABLES Final Resu lt [facility] [address] [place] [address], [place] [phone] * Microalbumin creatinine urine ratio (10/24/2024 9:31 AM EDT) [facility] Creatinine, Urine 234.0 mg/dL LAB CHEMISTRY METHOD 10/24/2024 10:22 PM EDT [facility] Microalb, Ur <5.0 0.0 - 29.0 mg/L LAB CHEMISTRY METHOD 10/24/2024 10:22 PM EDT [facility] Microalb/Creat Ratio <2 <30 mg/g creat LAB CHEMISTRY METHOD 10/24/2024 10:22 PM EDT [facility] Urine Urine specimen obtained by clean catch procedure / Unknown Non-blood Collection / Unknown 10/24/2024 9:31 AM EDT 10/24/2024 9:31 AM EDT us Brando Gibbs MD LAB URINE ORDERABLES Final Resu lt Performing Organization Address City/Special Care Hospital/ZIP Co de Phone Number [facility] [address] [place] [address], [place] [phone] * Hemoglobin A1c (10/24/2024 9:31 AM EDT) [facility] Hemoglobin A1C 6.4 <6.5 % LAB CHEMISTRY METHOD 10/24/2024 2:08 PM EDT [facility] Mean Bld Glu Estim. 137 mg/dL LAB CHEMISTRY METHOD 10/24/2024 2:08 PM EDT [facility] Blood Venous blood specimen / Unknown Venipuncture / Unknown 10/24/2024 9:31 AM EDT 10/24/2024 9:31 AM EDT us Brando Gibbs MD LAB BLOOD ORDERABLES Final Resu lt [facility] [address] [place] [address], [place] [phone] * (ABNORMAL) Comprehensive metabolic panel (10/24/2024 9:31 AM EDT) Sodium 139 133 - 145 mmol/L LAB CHEMISTRY METHOD 10/24/2024 1:34 PM [facility] Potassium 3.9 3.5 - 5.5 mmol/L LAB CHEMISTRY METHOD 10/24/2024 1:34 PM [facility] Chloride 105 96 - 110 mmol/L LAB CHEMISTRY METHOD 10/24/2024 1:34 PM [facility] CO2 27 21 - 32 mmol/L LAB CHEMISTRY METHOD 10/24/2024 1:34 PM [facility] Anion Gap 7 3 - 11 LAB CHEMISTRY METHOD 10/24/2024 1:34 PM [facility] Glucose 113(H) 70 - 100 mg/dL LAB CHEMISTRY METHOD 10/24/2024 1:34 PM [facility] BUN 11 5 - 25 mg/dL LAB CHEMISTRY METHOD 10/24/2024 1:34 PM [facility] Creatinine 1.32(H) 0.70 - 1.30 mg/dL LAB CHEMISTRY METHOD 10/24/2024 1:34 PM [facility] eGFR 66 >=60 mL/min/1. 73m2 LAB CHEMISTRY METHOD 10/24/2024 1:34 PM [facility] Comment:Calculation based on the??Chronic Kidney Disease Epidemiology Collaboration (CKD-EPI) equation refit??without adjustment for race. BUN/Creatinine Ratio 8.3 LAB CHEMISTRY METHOD 10/24/2024 1:34 PM [facility] Calcium 8.8 8.5 - 10.5 mg/dL LAB CHEMISTRY METHOD 10/24/2024 1:34 PM [facility] AST (SGOT) 26 10 - 42 unit/L LAB CHEMISTRY METHOD 10/24/2024 1:34 PM [facility] ALT (SGPT) 59 10 - 60 unit/L LAB CHEMISTRY METHOD 10/24/2024 1:34 PM [facility] Alkaline Phosphatase 92 42 - 121 unit/L LAB CHEMISTRY METHOD 10/24/2024 1:34 PM EDT [facility] Total Protein 7.3 6.0 - 8.0 g/dL LAB CHEMISTRY METHOD 10/24/2024 1:34 PM EDT [facility] Albumin 3.7 3.2 - 5.0 g/dL LAB CHEMISTRY METHOD 10/24/2024 1:34 PM EDT [facility] Total Bilirubin 0.6 0.0 - 1.4 mg/dL LAB CHEMISTRY METHOD 10/24/2024 1:34 PM EDT [facility] Blood Venous blood specimen / Unknown Venipuncture / Unknown 10/24/2024 9:31 AM EDT 10/24/2024 9:31 AM EDT Brando Gibbs MD LAB BLOOD ORDERABLES Final Resu lt [facility] [address] [place] [address], * Diabetes Foot Exam (07/12/2023) [facility] Diabetes: Annual Foot Exam abstracted Historical Provider HEALTH MAINTENANCE Final Result from Last 3 Months or Most Recently Relevant to Health Maintenance Insurance [facility] Care Teams Naval Marine Engineer Relationship Specialty Start Date End Date Brando Gibbs MD [address] [place] [phone] PCP - General Internal Medicine 04/29/21
--- OUTSIDE RECORDS SUMMARY | 2024-10-27 11:16 | XMS_ITS | Encounter Summary ---
Author Organization [facility] Address [address] [place] [address] Care Team Providers Care Child Abuse Worker Name Role Phone Brando Gibbs MD Primary Care Provider [phone] Reason for Referral * Cardiac Stress Testing (Routine) - Authorized Specialty Diagnoses / Procedures Referred By Contac t Referred To Contact Cardiology Diagnoses Chest pain, unspecified type Procedures Exercise stress test Brando Gibbs MD [address] [place] [address] Phone: tel: fax: [facility] Referral ID Status Reason Start Date Expiration Date V isits Requested Visits Authorized [id number] Authorized 10/23/2024 10/23/2025 1 1 Reason for Visit * Reason Comments Follow-up Diabetes Encounter Details Date Type Department Care Team (Late st Contact Info) Description 10/23/2024 9:45 AM EDT Office Visit Adult Medicine [address] [phone] Brando Gibbs MD [address] [place] [id number] Type 2 diabetes mellitus without complication, with long-term current use of insulin (CMS/HCC V24, CMS/HCC V28) (Primary Dx); Pure hypercholesterolemia ; Primary hypertension; Encounter for long-term (current) use of medications; Chest pain, unspecified type; Back strain, initial encounter; Back spasm Social History Tobacco Use Types Packs/Day Years [...] on file documented as of this encounter Last Filed Vital Signs Vital Sign Reading Time Taken Comments Blood Pressure 114/78 10/23/2024 9:40 AM EDT Pulse 82 10/23/2024 9:40 AM EDT Temperature 36.4 ??C (97.6 ??F) 10/23/2024 9:40 AM ED T Respiratory Rate - - Oxygen Saturation - - Inhaled Oxygen Concentration - - Weight 129 kg (285 lb) 10/23/2024 9:40 AM EDT Height 180.3 cm (5' 10.98 ) 10/23/2024 9:40 AM E DT Body Mass Index 39.77 10/23/2024 9:40 AM EDT documented in this encounter Ordered Prescriptions Prescription Sig Dispense Quantity Refills Last Filled Start Date End Date ibuprofen (ADVIL,MOTRIN) 800 mg tablet Take 1 tablet (800 mg total) by mouth 3 (three) times a day if needed for mild pain (pain). 90 tablet 5 10/23/2024 10/23/2025 cyclobenzaprine (FLEXERIL) 10 mg tablet Take 1 tablet (10 mg total) by mouth 3 (three) times a day if needed for muscle spasms. 21 tablet 2 10/23/2024 insulin glargine (Lantus Solostar U-100 Insulin) 100 unit/mL (3 mL) injection pen Inject 20 Units under the skin at bedtime. 15 mL 5 10/23/2024 documented in this encounter Progress Notes * Brando Gibbs MD - 10/23/2024 9:45 AM EDT CHIEF COMPLAINT: Follow-up and Diabetes IDENTIFIER: Adan Villar is a 49 y.o. old male. HPI: Pt with hx of diabetes dx in 11/2019 Pt hsa hx of dka 12/2019 Pt is currently on ozempic 1mg weekly pt is on lantus 20 units Pt does not check sugars Pt is following with endo seen last 06/2024 Ozempic was increased to 1mg weekly to help with weight loss Pt last a1c 6.1 06/2024 Pt last ldl 60 06/2024 Pt pt is on moderate intensity statin Pt last microalb/cr ratio <30 06/2024 Pt is on acei Pt does not has f/u with endo scheduled Pt with htn pt is on lisinopril 10mg bp today is at Goal@114/78 Pt denies light head/dizziness, shortness of breath , chest pain or cough. Pt notes acute back injury today while putting son in the car. Pt denies any sounds no popping. Pt notes low in nature Pt notes pain is sharp and constant Pain with pain with back rotation Pt notes when sitting having paresthesia right leg Pt notes chest pain x 4 month Pt believes could be gas. Pt notes the pain is daily. Pt notes feels like gas pt notes last for minute. Notes has been constipated and gassy since starting the ozempic. Pt denies associated n/v no diaphoresis Pt denies exertional component. Pt was [place] did allot of walking w/o chest pain ROS: GENERAL: Negative for malaise, significant weight loss and fever RESPIRATORY: No cough, wheezing or shortness of breath CARDIOVASCULAR: See HPI MUSCULOSKELETAL: See HPI PAST MEDICAL HISTORY: Patient Active Problem List Diagnosis Date Noted Left foot pain 06/26/2024 Fibroma of left foot 06/26/2024 Plantar fasciitis 06/26/2024 Seasonal allergies 05/23/2024 Primary hypertension 04/20/2024 Hyperlipidemia 06/09/2023 Diabetes mellitus type 2, uncomplicated ([facility] V24, [facility] V28) 11/22/2019 Morbid obesity with body mass index (BMI) of 40.0 or higher ([facility] V24, [facility] V28) 11/22/2019 Cervical radiculopathy 03/14/2019 Cervical spondylosis with radiculopathy 03/14/2019 Acanthosis nigricans 11/16/2018 Gastroesophageal reflux disease 11/16/2018 SOCIAL HISTORY: Social History Tobacco Use Smoking status: Never Smokeless tobacco: Never Substance Use Topics Alcohol use: Yes FAMILY HISTORY: Family Status Relation Name Status Mother Father Sister Alive Brother Alive Brother Alive Brother Alive Brother Alive Brother Alive Brother Alive Brother Alive Brother Alive Sister Alive No partnership data on file Family History Problem Relation Name Age of Onset Stroke Mother Heart attack Mother Diabetes Mother Hypertension Mother Heart attack Father Asthma Father Hypertension Father Diabetes Sister No Known Problems Brother No Known Problems Brother No Known Problems Brother No Known Problems Brother No Known Problems Brother Asthma Brother Other (Other: heart disease) Brother Alcohol abuse Brother Other (Other: heart disease) Brother No Known Problems Sister ACTIVE MEDICATIONS: No outpatient medications have been marked as taking for the 10/23/24 encounter (Appointment) with Brando Gibbs MD. ALLERGIES: Ibuprofen PHYSICAL EXAM: Blood pressure 114/78, pulse 82, temperature 36.4 ??C (97.6 ??F), temperature source Temporal, height 1.803 m (70.98 ), weight 129 kg (285 lb). There is no height or weight on file to calculate BMI. Plan is deferred until next visit APPEARANCE: Alert and in no acute distress EYES: PERRLA, conjunctiva and sclera normal HEART: RRR with normal S1 and S2, no murmurs, no gallops, no JVD appreciated LUNG: clear to auscultation bilaterally BACK: right sided tender paraspinal spasm EXTREMITIES: Extremities warm and well perfused without clubbing, cyanosis, or edema LABS: EKG: no st elevation/depression no q waves rrr IMPRESSION: 1. Type 2 diabetes mellitus without complication, with long-term current use of insulin ([facility] V24, [facility] V28) 2. Pure hypercholesterolemia 3. Primary hypertension 4. Encounter for long-term (current) use of medications 5. Chest pain, unspecified type 6. Back strain, initial encounter 7. Back spasm PLAN: Pt with diabetes well controlled last A1c 6.1. will update A1c today, pt will continue current diabetic regimen of ozempic and lantus. Last microalb/cr ratio <30 , will update microalbumin today pt is on lam Pt with htn well controlled pt will continue current regimen of lisinopril will check bmp to assessrenal function and lytes pt with high cholesterol on a statin will check lipid profile and lft's last ldl < 70 pt to continue current statin therapy Pt notes chest pain past 4 months notes at night pt feels it is gas and contributes this to gas andconstipation he has had since starting GLP1A EKG today non-ischemic however pt with diabetes htn ptis at risk for cad will order stress test Pt with acute back injury exam c/w sprain and spasm will rx flexeril 10 mg po tid prn D/w pt this med can cause lethargy pt told to avoid driving, etoh, or operating heavy machinery will rx motrin 800 mg po tid. Advised rest and heat will have pt out of work for the next 48 hours Pt to f/u with me in 6 months Myself and my colleagues have maintained a long-term, longitudinal relationship with this patient, overseeing care of chronic conditions including diabetes ,hypertension and high cholesterol . This care relationship has significantly influenced my decision making and treatment plans during today's encounter. Orders Placed This Encounter Procedures Hemoglobin A1c Lipid panel with reflex to direct LDL Comprehensive metabolic panel Microalbumin creatinine urine ratio ECG 12 lead Tracing Only Exercise stress test ADDITIONAL ORDERS: None Brando Gibbs MD on 10/23/2024 at 7:35 AM EDT documented in this encounter Plan of Treatment Upcoming Encounters Date Type Department Care Team (Late st Contact Info) Description 11/12/2024 8:15 AM EDT Office Visit Orthopedic Surgery - [place] [address] [phone] Karthik Gill DPM [address] [address] 11/20/2024 9:15 AM EDT Ancillary Procedure [facility] [address] [phone] 04/12/2025 7:30 AM EDT Hospital Encounter [facility] [place] [address] [place] [phone] Karthik Gill DPM [address] [address] 04/12/2025 7:30 AM EDT - 04/12/2025 9:30 AM EDT Surgery [facility] [place] [address] [place] [phone] Karthik Gill, DPM [address] [address] EXCISION MASS LEFT EXTREMITY LOWER [55790 (CPT??)] 05/10/2025 8:30 AM EDT Office Visit Adult Medicine [facility] [address] [place] [phone] Brando Gibbs MD [address] [place] [address] Scheduled Orders Name Type Priority Associated Diagnoses Orde r Schedule Exercise stress test Cardiac Nuclear Medicine Routine Chest pain, unspecified type 1 Occurrences starting 10/23/2024 until 10/23/2025 Scheduled Procedures Name Priority Associated Diagnoses Date/Ti me EXCISION MASS EXTREMITY LOWER Left foot pain Fibroma of left foot Plantar fasciitis 04/12/2025 7:30 AM EDT FASCIOTOMY PLANTAR Left foot pain Fibroma of left foot Plantar fasciitis 04/12/2025 7:30 AM EDT documented as of this encounter Results * Microalbumin creatinine urine ratio (10/24/2024 9:31 AM EDT) Creatinine, Urine 234.0 mg/dL LAB CHEMISTRY METHOD 10/24/2024 10:22 PM EDT [facility] Microalb, Ur <5.0 0.0 - 29.0 mg/L LAB CHEMISTRY METHOD 10/24/2024 10:22 PM EDT [facility] Microalb/Creat Ratio <2 <30 mg/g creat LAB CHEMISTRY METHOD 10/24/2024 10:22 PM EDT [facility] Urine Urine specimen obtained by clean catch procedure / Unknown Non-blood Collection / Unknown 10/24/2024 9:31 AM EDT 10/24/2024 9:31 AM EDT us Brando Gibbs MD LAB URINE ORDERABLES Final Resu lt [facility] [address] [place] [address], * (ABNORMAL) Comprehensive metabolic panel (10/24/2024 9:31 AM EDT) Sodium 139 133 - 145 mmol/L LAB CHEMISTRY METHOD 10/24/2024 1:34 PM EDT [facility] Potassium 3.9 3.5 - 5.5 mmol/L LAB CHEMISTRY METHOD 10/24/2024 1:34 PM [facility] Chloride 105 96 - 110 mmol/L LAB CHEMISTRY METHOD 10/24/2024 1:34 PM [facility] CO2 27 21 - 32 mmol/L LAB CHEMISTRY METHOD 10/24/2024 1:34 PM [facility] Anion Gap 7 3 - 11 LAB CHEMISTRY METHOD 10/24/2024 1:34 PM [facility] Glucose 113(H) 70 - 100 mg/dL LAB CHEMISTRY METHOD 10/24/2024 1:34 PM [facility] BUN 11 5 - 25 mg/dL LAB CHEMISTRY METHOD 10/24/2024 1:34 PM [facility] Creatinine 1.32(H) 0.70 - 1.30 mg/dL LAB CHEMISTRY METHOD [facility]24 [facility] eGFR 66 >=60 mL/min/1. 73m2 LAB CHEMISTRY METHOD 10/24/2024 1:34 PM [facility] Comment:Calculation based on the??Chronic Kidney Disease Epidemiology Collaboration (CKD-EPI) equation refit??without adjustment for race. BUN/Creatinine Ratio 8.3 LAB CHEMISTRY METHOD 10/24/2024 1:34 PM [facility] Calcium 8.8 8.5 - 10.5 mg/dL LAB CHEMISTRY METHOD 10/24/2024 1:34 PM [facility] AST (SGOT) 26 10 - 42 unit/L LAB CHEMISTRY METHOD 10/24/2024 1:34 PM EDT [facility] ALT (SGPT) 59 10 - 60 unit/L LAB CHEMISTRY METHOD 10/24/2024 1:34 PM EDT [facility] Alkaline Phosphatase 92 42 - 121 unit/L LAB CHEMISTRY METHOD 10/24/2024 1:34 PM EDT [facility] Total Protein 7.3 6.0 - 8.0 g/dL LAB CHEMISTRY METHOD 10/24/2024 1:34 PM EDT [facility] Albumin 3.7 3.2 - 5.0 g/dL LAB CHEMISTRY METHOD 10/24/2024 1:34 PM [facility] Total Bilirubin 0.6 0.0 - 1.4 mg/dL LAB CHEMISTRY METHOD 10/24/2024 1:34 PM T [facility] Blood Venous blood specimen / Unknown Venipuncture / Unknown 10/24/2024 9:31 AM EDT 10/24/2024 9:31 AM EDT us Brando Gibbs MD LAB BLOOD ORDERABLES Final Resu lt [facility] [address] [place] [address], * Lipid panel with reflex to direct LDL (10/24/2024 9:31 AM EDT) Cholesterol 118 0 - 200 mg/dL LAB CHEMISTRY METHOD 10/24/2024 1:34 PM EDT [facility] Triglycerides 125 0 - 150 mg/dL LAB CHEMISTRY METHOD 10/24/2024 1:34 PM T [facility] HDL 48 >=40 mg/dL LAB CHEMISTRY METHOD 10/24/2024 1:34 PM EDT [facility] LDL Calculated 45 0 - 100 mg/dL LAB CHEMISTRY METHOD 10/24/2024 1:34 PM EDT [facility] VLDL Cholesterol Dusty 25 mg/dL LAB CHEMISTRY METHOD 10/24/2024 1:34 PM EDT [facility] Non HDL Chol. (LDL+VLDL) 70 <145 mg/dL LAB CHEMISTRY METHOD 10/24/2024 1:34 PM EDT [facility] Chol/HDL Ratio 2.5 0.0 - 4.4 LAB CHEMISTRY METHOD 10/24/2024 1:34 PM EDT [facility] Blood Venous blood specimen / Unknown Venipuncture / Unknown 10/24/2024 9:31 AM EDT 10/24/2024 9:31 AM EDT us Brando Gibbs MD LAB BLOOD ORDERABLES Final Resu lt Performing Organization Address City/[facility]/ZIP Co de Phone Number [facility] [address] [place] [address], [place] [phone] * Hemoglobin A1c (10/24/2024 9:31 AM EDT) Hemoglobin A1C 6.4 <6.5 % LAB CHEMISTRY METHOD 10/24/2024 2:08 PM EDT [facility] Mean Bld Glu Estim. 137 mg/dL LAB CHEMISTRY METHOD 10/24/2024 2:08 PM EDT [facility] Blood Venous blood specimen / Unknown Venipuncture / Unknown 10/24/2024 9:31 AM EDT 10/24/2024 9:31 AM EDT us Brando Gibbs MD LAB BLOOD ORDERABLES Final Resu lt Performing Organization Address City/[facility]/ZIP Co de Phone Number [facility] [address] [place] [address], [place] [phone] documented in this encounter Visit Diagnoses Diagnosis Left foot pain Pain in soft tissues of limb Fibroma of left foot Plantar fasciitis Plantar fascial fibromatosis Type 2 diabetes mellitus without complication, with long-term current use of insulin ([facility] V24, [facility] V28)- Primary Pure hypercholesterolemia Primary hypertension Unspecified essential hypertension Encounter for long-term (current) use of medications Encounter for long-term (current) use of other medications Chest pain, unspecified type Back strain, initial encounter Back spasm Other symptoms referable to back Left foot pain Pain in soft tissues of limb Fibroma of left foot Plantar fasciitis Plantar fascial fibromatosis documented in this encounter Discontinued Medications Medication Sig Discontinue Reason Start Date End Da te insulin glargine (Lantus Solostar U-100 Insulin) 100 unit/mL (3 mL) injection pen Inject 20 Units into the skin at bedtime. Go up by 5 units every week if BS above 130. Max daily dose 60 units Reorder 01/06/2024 10/23/2024 cyclobenzaprine (FLEXERIL) 10 mg tablet Take 1 tablet (10 mg total) by mouth 3 (three) times a day if needed for muscle spasms. Reorder 11/24/2023 10/23/2024 documented as of this encounter Care Teams Child Abuse Worker Relationship Specialty Start Date End Date Brando Gibbs MD [address] [place] [id number] PCP - General Internal Medicine 04/29/21 documented as of this encounter
--- OUTSIDE RECORDS SUMMARY | 2024-10-27 11:16 | XMS_ITS | Encounter Summary ---
Author Organization [facility] Address [address] [place] [address] Care Team Providers Care Belt Loop Machine Operator Name Role Phone Brando Gibbs MD Primary Care Provider [phone] Encounter Details Date Type Department Care Team (Latest Contact Info) Description 10/26/2024 11:36 AM EDT - 10/26/2024 11:59 PM EDT Hospital Encounter XRAY - [place] [address] [place] [address] Acute low back pain without sciatica, unspecified back pain laterality Discharge Disposition: Home or Self Care Social History Tobacco Use Types Packs/Day Years [...] on file documented as of this encounter Medications at Time of Discharge atorvastatin (LIPITOR) 20 mg tablet TAKE 1 TABLET BY MOUTH EVERYDAY AT BEDTIME 90 tablet 1 07/26/2024 blood sugar diagnostic (FreeStyle Lite Strips) test strip Use to check BS 3 times a day 12/16/2023 blood-glucose meter kit 1 Device by Does not apply route daily. 12/16/2023 blood-glucose sensor (FreeStyle Gregorio 3 Plus Sensor) deviceIndication s:Type 2 diabetes mellitus without complication, with long-term current use of insulin ([facility] V24, [facility] V28) Change sensor every 15 days 2 each 11 06/21/2024 cyclobenzaprine (FLEXERIL) 10 mg tablet Take 1 tablet (10 mg total) by mouth 3 (three) times a day if needed for muscle spasms. 21 tablet 2 10/23/2024 diclofenac (VOLTAREN) 1 % topical gel Apply 4 g topically 4 times daily. 04/20/2024 FREESTYLE LANCETS MISC Use to check BS 3 times a day 12/16/2023 ibuprofen (ADVIL,MOTRIN) 800 mg tablet Take 1 tablet (800 mg total) by mouth 3 (three) times a day if needed for mild pain (pain). 90 tablet 5 10/23/2024 insulin glargine (Lantus Solostar U-100 Insulin) 100 unit/mL (3 mL) injection pen Inject 20 Units under the skin at bedtime. 15 mL 5 10/23/2024 lisinopriL (PRINIVIL,ZESTRI L) 10 mg tablet TAKE 1 TABLET BY MOUTH EVERY DAY 90 tablet 1 07/26/2024 pen needle, diabetic 32 gauge x needle Use one daily with insulin. 12/20/2023 semaglutide (Ozempic) 1 mg/dose (2 mg/1.5 mL) injection pen Inject 1 mg under the skin every 7 (seven) days. 3 mL 5 06/21/2024 documented as of this encounter Discharge Disposition Disposition Code Departure Means Destination Home or Self Care documented in this encounter Plan of Treatment Upcoming Encounters Date Type Department Care Team (Late st Contact Info) Description 11/12/2024 8:15 AM EDT Office Visit Orthopedic Surgery - [place] [address] [phone] Karthik Gill DPM [address] [address] 11/20/2024 9:15 AM EDT Ancillary Procedure [facility] [address] [phone] 04/12/2025 7:30 AM EDT Hospital Encounter [facility] [place] [address] [place] [phone] Karthik Gill DPM [address] [address] 04/12/2025 7:30 AM EDT - 04/12/2025 9:30 AM EDT Surgery [facility] [place] [address] [place] [phone] Karthik Gill DPM [address] [address] EXCISION MASS LEFT EXTREMITY LOWER [330[address] (CPT??)] 05/10/2025 8:30 AM EDT Office Visit Adult Medicine [facility] [address] [place] [phone] Brando Gibbs MD [address] [place] [address] Scheduled Procedures Name Priority Associated Diagnoses Date/Ti me EXCISION MASS EXTREMITY LOWER Left foot pain Fibroma of left foot Plantar fasciitis 04/12/2025 7:30 AM EDT FASCIOTOMY PLANTAR Left foot pain Fibroma of left foot Plantar fasciitis 04/12/2025 7:30 AM EDT documented as of this encounter Procedures Procedure Name Priority Date/Time Associated Diagnosis Comments XR LUMBAR SPINE 4+ VIEWS Routine 10/26/2024 11:46 AM EDT Acute low back pain without sciatica, unspecified back pain laterality documented in this encounter Results * XR Lumbar Spine 4+ Views [...] Signed Date: 10/26/2024 12:00 ET Workstation ID: [id number] Transcribed By: Self Edit Transcribed Date: 10/26/2024 [...] Signed Date: 10/26/2024 12:00 ET Workstation ID: [id number] Transcribed By: Self Edit Transcribed Date: 10/26/2024 11:57 ET us Brando Gibbs MD IMG XR PROCEDURES Final Result documented in this encounter Visit Diagnoses Diagnosis Left foot pain Pain in soft tissues of limb Fibroma of left foot Plantar fasciitis Plantar fascial fibromatosis Acute low back pain without sciatica, unspecified back pain laterality Left foot pain Pain in soft tissues of limb Fibroma of left foot Plantar fasciitis Plantar fascial fibromatosis documented in this encounter Care Teams Belt Loop Machine Operator Relationship Specialty Start Date End Date Brando Gibbs MD [address] [place] [id number] PCP - General Internal Medicine 04/29/21 documented as of this encounter
[2024-10-27] MEDS: Ketorolac Tromethamine 60 MG/2 ML VIAL IM (11:28)
[2024-10-27] MEDS: predniSONE 20 MG TABLET 60 MG PO (11:28)
[2024-10-27 12:26] VITALS: BP 130/68; PULSE 62; RESP 18; TEMP 36.7; O2SAT 100
== END 2024-10-27 12:27 | disposition home or self-care (01) ==
PROVIDERS: Emergency Provider Emergency Medicine; PCP Internal Medicine
DX: M54.31 Sciatica, right side (principal); M54.50 Low back pain, unspecified
CPT/HCPCS: 72100; 96372; 99284; J1885

== ENCOUNTER → 2024-10-27 11:14 | Outpatient (BNV) | payer OTHER, SELFPAY | PROVIDERS: Emergency Provider Emergency Medicine; PCP Internal Medicine; Visit Provider Specialist | DX: M54.9 Dorsalgia, unspecified (principal) | CPT/HCPCS: 72100 ==